=== PATIENT | male | born 1995 | race Two or more races ===

== ENCOUNTER 2019-03-25 10:58 | Emergency (ER) | payer OTHER ==
[~2019-03-25] VITALS: Ht 180.3 cm; Wt 121.1 kg
[2019-03-25 11:08] VITALS: BP 122/76
[2019-03-25] MEDS ORDERED: IBUPROFEN 600 MG TABLET PO ONE ×2 (12:07→12:30)
--- NOTE | 2019-03-25 12:28 | NUR ---
ERROR ON DEPARTURE. PT IS IN CUSTODY WITH [employer].
== END 2019-03-25 12:26 | disposition home or self-care (01) ==
LOC: ER 10:59
DX: S09.8XXA Other specified injuries of head, initial encounter (principal); G40.909 Epilepsy, unspecified, not intractable, without status epilepticus; V49.59XA Passenger injured in collision with other motor vehicles in traffic accident, initial encounter; Y93.89 Activity, other specified; Y92.413 State road as the place of occurrence of the external cause; Y99.8 Other external cause status